=== PATIENT | male | born 1945 | race Caucasian/White ===

== ENCOUNTER → 2017-10-18 | Outpatient (CLI) | payer OTHER ==
[~2017-10-18] MED LIST: AMLO10 PO; ASPI325 PO; ASPI81CH PO; CHOL10002; CRANBERRY250 MG PO; INSULANPEN SC; LIRA0.6P; LISI20 PO; LISINOPRIL 40MG PO; LOVASTATIN 10 MG PO; OMEP40CA12 PO; Saw Palmetto C1 EACH PO
== END ==
LOC: LAB SHORT 10:06
DX: N39.0 Urinary tract infection, site not specified (principal)
CPT/HCPCS: 87077; 87086; 87186

== ENCOUNTER 2019-05-25 09:39 | Inpatient (IN) | payer OTHER ==
[~2019-05-25] VITALS: Ht 172.7 cm; Wt 113.4 kg
[~2019-05-25 09:39] MED LIST changes: -ASPI325 PO; +Aspirin EC81 MG PO; -CHOL10002; -INSULANPEN SC; -LISI20 PO; -OMEP40CA12 PO; +OMEPRAZOLE20 MG PO; -Saw Palmetto C1 EACH PO; +Saw Palmetto450 MG PO; +TOUJEO SOL300 UNIT/1 SC; +VITAMIN D31000 UNIT PO; +ZESTRIL40 MG PO
[2019-05-25] MEDS ORDERED: CLOP75 PO (09:51)
[2019-05-25 10:01] LABS: BASOPHILS ABSOLUTE AUTO 0.08 K/mm3 (0.00-0.23); BASOPHILS PERCENT AUTO 1 % (0-2); EOSINOPHILS ABSOLUTE AUTO 0.91 K/mm3 (0.00-0.68); EOSINOPHILS PERCENT AUTO 9 % (0-6); Hematocrit 42.9 % (37.0-53.0); Hemoglobin 14.1 g/dL (13.5-17.5); IMMATURE GRAN ABSOLUTE AUTO 0.03 K/mm3 (0.00-0.10); IMMATURE GRAN PERCENT AUTO 0 % (0-1); LYMPHOCYTES ABSOLUTE AUTO 2.06 K/mm3 (0.84-5.20); LYMPHOCYTES PERCENT AUTO 19 % (21-46); MONOCYTES PERCENT AUTO 10 % (4-13); Mean Corpuscular HGB 30.4 pg (26.0-34.0); Mean Corpuscular HGB Conc 32.9 g/dL (31.5-36.5); Mean Platelet Volume 10.3 fL (9.1-12.4); NEUTROPHILS ABSOLUTE AUTO 6.51 K/mm3 (1.96-9.15); NEUTROPHILS PERCENT AUTO 61 % (41-73); Platelet Count 330 K/mm3 (150-400); RDW Coefficient Variation 13.7 % (11.7-14.2); RDW Standard Deviation 46.7 fL (35.1-46.3); Red Blood Cell Count 4.64 M/mm3 (4.30-5.90); White Blood Cell Count 10.69 K/mm3 (4.00-11.30)
[2019-05-25 10:05] LABS: Mean Corpuscular Volume 93 fL (80-100)
[2019-05-25 10:18] LABS: Alanine Aminotransfer (ALT/SGP 21 U/L (12-78); Albumin, Blood 3.5 g/dL (3.4-5.0); Albumin/Globulin Ratio 0.9 (0.8-1.8); Alk Phos 110 U/L (50-136); Anion Gap 8 mmol/L (6-16); Aspartate Aminotrans (AST/SGOT 17 U/L (12-37); Bilirubin, Total 0.4 mg/dL (0.1-1.0); Blood Urea Nitrogen 10 mg/dL (8-24); Bun/Creatinine Ratio 16.5 (12.0-20.0); CO2, Blood 29 mmol/L (21-32); Calcium, Blood 8.5 mg/dL (8.5-10.1); Chloride, Blood 105 mmol/L (98-108); Creatinine, Blood 0.61 mg/dL (0.60-1.20); Globulin, Blood 3.8 g/dL (2.2-4.0); Glomerular Filtration Rate >60 (60-); Glucose, Blood 115 mg/dL (70-99); Potassium, Blood 4.2 mmol/L (3.5-5.5); Sodium, Blood 142 mmol/L (136-145); Total Protein, Blood 7.3 g/dL (6.4-8.2)
[2019-05-25 10:23] LABS: Troponin I 0.766 ng/mL (0.000-0.040)
[2019-05-25] MEDS ORDERED: Lipitor20 MG PO (12:32)
[2019-05-25] MEDS ORDERED: NOVOLOG FL100 UNIT/1 SC (12:33)
--- NOTE | 2019-05-25 18:19 | NUR ---
END OF SHIFT; PT ARRIVED TO U APPROX 1645 TODAY. HE DENIED ANY CP OR PRESSURE ON ARRIVAL. CARDIOLOGY CONSULT IS CALLED TO ON ARRIVAL TO U. CH TROP IS VERBALLY GIVEN TO WHO WAS AT U DESK. EXAMINED PT THIS QUE AND CONSENTED PT FOR ANGIO. HE IS HAVING ECHO FIRST THEN WILL BE TRANSFERRED TO [facility] FOR ANGIO. PT HAD 7 BEAT RUN OF VTACH DURING ECHO. WAS SYMPTOMATIC FEELING A FLUTTER IN HIS CHEST AND SOB. NOTIFIED OF EVENT. AT THIS TIME ECHO IS BEING PERFORMED. WILL CONTINUE TOMONITOR THIS PATIENT UNTIL REPORT AND HAND OFF TO NOC SHIFT RN.
--- NOTE | 2019-05-26 03:12 | NUR ---
SHIFT SUMMARY: PATIENT POST CATH VSS, RIGHT RADIAL SITE IS FREE OF ANY SIGN OF BLEEDING, HEMATOMA FORMATION, UNUSUAL BRUISING AND HAS ALL SENSATIONS AND MOVEMENT INTACT, O2 SATURATIONS REMAINE >90%. TR BAND FULLY RECOVERED AT APPROX 0300 AND HEPARIN RESTARTED AT THIS TIME PER MD INSTRUCTION. PATIENT APTT IS 26 AT THIS TIME. PATIENT EDUCATED AND FULLY AWARE OF PLAN TO [facility] TRANSFER TO [facility] 05/26/19 FOR FURTHER TREATMENT OF HEART ISSUES. ALL VS THIS SHIFT, PATIENT COMPLIANT WITH CARE, CALL LIGHT WITHIN REACH WITH BED LOW AND LOCKED.
[2019-05-26 07:27] LABS: BASOPHILS ABSOLUTE AUTO 0.09 K/mm3 (0.00-0.23); BASOPHILS PERCENT AUTO 1 % (0-2); EOSINOPHILS ABSOLUTE AUTO 0.93 K/mm3 (0.00-0.68); EOSINOPHILS PERCENT AUTO 10 % (0-6); Hematocrit 41.8 % (37.0-53.0); Hemoglobin 13.9 g/dL (13.5-17.5); IMMATURE GRAN ABSOLUTE AUTO 0.03 K/mm3 (0.00-0.10); IMMATURE GRAN PERCENT AUTO 0 % (0-1); LYMPHOCYTES ABSOLUTE AUTO 1.48 K/mm3 (0.84-5.20); LYMPHOCYTES PERCENT AUTO 16 % (21-46); MONOCYTES ABSOLUTE AUTO 0.87 K/mm3 (0.16-1.47); MONOCYTES PERCENT AUTO 9 % (4-13); Mean Corpuscular HGB 30.1 pg (26.0-34.0); Mean Corpuscular HGB Conc 33.3 g/dL (31.5-36.5); Mean Corpuscular Volume 91 fL (80-100); Mean Platelet Volume 10.2 fL (9.1-12.4); NEUTROPHILS ABSOLUTE AUTO 5.97 K/mm3 (1.96-9.15); NEUTROPHILS PERCENT AUTO 64 % (41-73); Platelet Count 284 K/mm3 (150-400); RDW Coefficient Variation 13.9 % (11.7-14.2); RDW Standard Deviation 46.4 fL (35.1-46.3); Red Blood Cell Count 4.62 M/mm3 (4.30-5.90); White Blood Cell Count 9.37 K/mm3 (4.00-11.30)
--- NOTE | 2019-05-26 07:30 | NUR ---
INITIAL ASSESSMENT: Patient is awake and sitting at the edge of the bed. Patient is alert and oriented. He denies pain at this time. He states the only time he has pain is when he is lying down at night, his lower back and shoulders "bother" him. Patients heart rate is in NSR with first degree heart block in the 70s per telemetry. LS dim with exp wheezes t/o. Biox WNL on RA. Patient states last week he was treated with ABX for cough and SOB. Patient states it got better for a while and then returned, thus he went back to urgent care and was sent to the ER. Patient has a dry NPC. Biox 92% on RA. BT+. PPP. VSS. Heaprin GTT infusing at 13u/kg. Right wrist TR site with opsite dressing CDI. Arm board in place. Call light in reach, pt denies other needs at this time.
[2019-05-26 07:44] LABS: Anion Gap 7 mmol/L (6-16); Blood Urea Nitrogen 11 mg/dL (8-24); Bun/Creatinine Ratio 19.9 (12.0-20.0); CO2, Blood 27 mmol/L (21-32); Calcium, Blood 8.8 mg/dL (8.5-10.1); Chloride, Blood 107 mmol/L (98-108); Creatinine, Blood 0.55 mg/dL (0.60-1.20); Glomerular Filtration Rate >60 (60-); Glucose, Blood 144 mg/dL (70-99); Potassium, Blood 4.2 mmol/L (3.5-5.5); Sodium, Blood 141 mmol/L (136-145)
--- NOTE | 2019-05-26 11:45 | NUR ---
ASSESSMENT: PATIENT IS RESTING IN BED WITH FAMILY AT BEDSIDE. VSS. ASSESSMENT UNCHANGED. PT DENIES OTHER NEEDS AT THIS TIME. CALL LIGHT IN REACH, WILL CONTINUE TO MONITOR.
--- NOTE | 2019-05-26 12:15 | NUR ---
FIELD OPERATIONS TECHNICIAN CALLED AND GAVE ROOM ASSIGNMENT. PT AND FAMILY NOTIFIED OF ROOM ASSIGNMENT. TRANSPORT SET UP FOR 1:30.
--- NOTE | 2019-05-26 13:30 | NUR ---
PT TO [facility]
== END 2019-05-26 13:34 | disposition short-term general hospital (02) | DRG 281 ==
LOC: ER 09:39 → PCU 15:13
PROVIDERS: Emergency Medicine; ADMIT Student in an Organized Health Care Education/Training Program
PROC: B2111ZZ Fluoroscopy of Multiple Coronary Arteries using Low Osmolar Contrast (ICD-10-PCS; principal; 2019-05-25)
DX: I21.4 Non-ST elevation (NSTEMI) myocardial infarction (principal); I48.92 Unspecified atrial flutter; Z79.82 Long term (current) use of aspirin; Z79.4 Long term (current) use of insulin; I10 Essential (primary) hypertension; J44.9 Chronic obstructive pulmonary disease, unspecified; E11.51 Type 2 diabetes mellitus with diabetic peripheral angiopathy without gangrene; Z87.891 Personal history of nicotine dependence; Z66 Do not resuscitate; F10.10 Alcohol abuse, uncomplicated; I25.10 Atherosclerotic heart disease of native coronary artery without angina pectoris
CPT/HCPCS: 36415; 71260; 80048; 80053; 82947; 83690; 83880; 84484; 85025; 85730; 93005; 93010; 93306; 93454; 94640; 94760; 96365-59; 96366; 99152; 99153; 99285-25; C1769; C1894; J1644; J2250; J2405; J3010; J7030; Q9967

== ENCOUNTER → 2020-02-08 | Outpatient (CLI) | payer OTHER ==
[~2020-02-08] MED LIST changes: +CLOP75 PO; +Lipitor20 MG PO; +NOVOLOG FL100 UNIT/1 SC
== END | disposition home or self-care (01) ==
LOC: LAB EV 10:02 → LAB SHORT 10:02
DX: N39.0 Urinary tract infection, site not specified (principal)
CPT/HCPCS: 87077; 87086; 87186

== ENCOUNTER → 2023-02-21 | Outpatient (CLI) | payer OTHER ==
[~2023-02-21] MED LIST changes: +ASPI325 PO; +ATORVASTATIN CA80 M1 PO; +CLOBETASOL EMOL15 G1; +ELIQUIS5 M2 PO; +FURO40 PO; +FUROSEMIDE40 MG PO; +Glucotrol5 MG PO; +ISOSORBIDE MONO30 MG PO; +LEVO750 PO; -LIRA0.6P; +LOSA25 PO; +Lasix20 MG PO; +Lopressor 25 mg25 MG PO; +METO25ER PO; +METO50ER PO; +NOVOLIN N100 UNIT/2 SC; -NOVOLOG FL100 UNIT/1 SC; +NOVOLOG FL100 UNIT/3 SC; +NOVOLOG SC; +OMEP20ER PO; +PANT20 PO; +SILD25T PO; +SYMBICORT 160-4.6 GM INH; +Saw Palmetto160 MG PO; -Saw Palmetto450 MG PO; +TIOT18 INH; -TOUJEO SOL300 UNIT/1 SC; +TOUJEO SOL300 UNIT/2 SC; +VICTOZA 3-0.6 MG/0.2 SC; +Ventolin/Prove6.7 GM INH; +[UNRECOGNIZED DRUG - OTHER] SC
== END | disposition home or self-care (01) ==
LOC: LAB 08:30 → LAB SHORT 08:30
DX: J84.9 Interstitial pulmonary disease, unspecified (principal); J40 Bronchitis, not specified as acute or chronic
CPT/HCPCS: 88108; 88312

== ENCOUNTER 2023-03-07 15:31 | Emergency (ER) | payer OTHER ==
[~2023-03-07] VITALS: Ht 170.2 cm; Wt 106.6 kg
[2023-03-07 16:03] VITALS: BP 117/62
[2023-03-07] MEDS ORDERED: Percocet 5-3251 EACH PO (16:58)
== END 2023-03-07 17:04 | disposition home or self-care (01) ==
LOC: ER 15:31
DX: M54.16 Radiculopathy, lumbar region (principal); M54.40 Lumbago with sciatica, unspecified side; I11.0 Hypertensive heart disease with heart failure; I50.9 Heart failure, unspecified; E11.9 Type 2 diabetes mellitus without complications; J44.9 Chronic obstructive pulmonary disease, unspecified; E78.5 Hyperlipidemia, unspecified; I25.2 Old myocardial infarction; Z79.02 Long term (current) use of antithrombotics/antiplatelets; Z79.01 Long term (current) use of anticoagulants; Z79.4 Long term (current) use of insulin; Z79.84 Long term (current) use of oral hypoglycemic drugs; Z79.899 Other long term (current) drug therapy; Z87.891 Personal history of nicotine dependence; X50.0XXA Overexertion from strenuous movement or load, initial encounter
CPT/HCPCS: A9270; J1885

== ENCOUNTER 2023-07-26 11:34 | Emergency (ER) | payer OTHER ==
[~2023-07-26] VITALS: Ht 172.7 cm; Wt 90.7 kg
[~2023-07-26 11:34] MED LIST changes: +AMOCLA875 PO; +CARV6.25 PO; +CELE100; +DOXY100 PO; +ELIQUIS5 M2; +MORP15ER PO; +ONDA4ODT MM; +Percocet 5-3251 EACH PO
[2023-07-26 12:37] LABS: BASOPHILS ABSOLUTE AUTO 0.06 K/mm3 (0.00-0.23); BASOPHILS PERCENT AUTO 1 % (0-2); EOSINOPHILS PERCENT AUTO 7 % (0-6); Hematocrit 54.8 % (37.0-53.0); Hemoglobin 18.3 g/dL (13.5-17.5); IMMATURE GRAN ABSOLUTE AUTO 0.01 K/mm3 (0.00-0.10); IMMATURE GRAN PERCENT AUTO 0 % (0-1); LYMPHOCYTES ABSOLUTE AUTO 1.61 K/mm3 (0.84-5.20); LYMPHOCYTES PERCENT AUTO 19 % (21-46); MONOCYTES ABSOLUTE AUTO 0.86 K/mm3 (0.16-1.47); MONOCYTES PERCENT AUTO 10 % (4-13); Mean Corpuscular HGB 30.7 pg (26.0-34.0); Mean Corpuscular HGB Conc 33.4 g/dL (31.5-36.5); Mean Corpuscular Volume 92 fL (80-100); Mean Platelet Volume 10.9 fL (9.1-12.4); NEUTROPHILS ABSOLUTE AUTO 5.31 K/mm3 (1.96-9.15); NEUTROPHILS PERCENT AUTO 63 % (41-73); Platelet Count 310 K/mm3 (150-400); RDW Coefficient Variation 13.5 % (11.7-14.2); RDW Standard Deviation 45.9 fL (35.1-46.3); Red Blood Cell Count 5.96 M/mm3 (4.30-5.90); White Blood Cell Count 8.45 K/mm3 (4.00-11.30)
[2023-07-26 12:49] LABS: Albumin, Blood 3.4 g/dL (3.4-5.0); Albumin/Globulin Ratio 0.7 (0.8-1.8); Bilirubin, Total 0.8 mg/dL (0.1-1.0); Bun/Creatinine Ratio 25.4 (12.0-20.0); Calcium, Blood 8.9 mg/dL (8.5-10.1); Creatinine, Blood 0.75 mg/dL (0.60-1.20); Globulin, Blood 4.6 g/dL (2.2-4.0); Potassium, Blood 4.4 mmol/L (3.5-5.5)
[2023-07-26] MEDS ORDERED: AZIT250 PO (13:38)
[2023-07-26] MEDS ORDERED: PRED20 PO (13:38)
[2023-07-26] MEDS ORDERED: LIDO700A20 TOP (13:56)
[2023-07-26 14:30] VITALS: BP 131/93
== END 2023-07-26 14:38 | disposition home or self-care (01) ==
LOC: ER 11:34
PROVIDERS: Emergency Medicine
DX: J44.1 Chronic obstructive pulmonary disease with (acute) exacerbation (principal); D72.829 Elevated white blood cell count, unspecified; I11.0 Hypertensive heart disease with heart failure; I50.9 Heart failure, unspecified; E11.51 Type 2 diabetes mellitus with diabetic peripheral angiopathy without gangrene; I25.10 Atherosclerotic heart disease of native coronary artery without angina pectoris; I25.2 Old myocardial infarction; E78.5 Hyperlipidemia, unspecified; Z79.01 Long term (current) use of anticoagulants; Z79.84 Long term (current) use of oral hypoglycemic drugs; Z79.899 Other long term (current) drug therapy; Z87.891 Personal history of nicotine dependence; Z99.81 Dependence on supplemental oxygen
CPT/HCPCS: 71046; 80053; 84484; 85025; 93005; 93010; 96374; 96375; 99285-25; J1885; J2930

== ENCOUNTER 2023-10-22 09:30 | Observation (INO) | payer OTHER ==
[~2023-10-22] VITALS: Ht 170.2 cm; Wt 84.0 kg
[~2023-10-22 09:30] MED LIST changes: +AZIT250 PO; +LIDO700A20 TOP; +PRED20 PO
[2023-10-22 11:28] LABS: Base Excess Venous 2.9 mmol/L; Bicarbonate Venous 26.3 mmol/L (24.0-30.0); PCO2 Venous 42.4 mmHg (38-42); pH Blood Venous 7.42 (7.34-7.37)
[2023-10-22 11:35] LABS: BASOPHILS ABSOLUTE AUTO 0.03 K/mm3 (0.00-0.23); BASOPHILS PERCENT AUTO 0 % (0-2); EOSINOPHILS ABSOLUTE AUTO 0.01 K/mm3 (0.00-0.68); EOSINOPHILS PERCENT AUTO 0 % (0-6); Hematocrit 50.2 % (37.0-53.0); Hemoglobin 16.8 g/dL (13.5-17.5); IMMATURE GRAN ABSOLUTE AUTO 0.07 K/mm3 (0.00-0.10); IMMATURE GRAN PERCENT AUTO 1 % (0-1); LYMPHOCYTES ABSOLUTE AUTO 0.92 K/mm3 (0.84-5.20); LYMPHOCYTES PERCENT AUTO 7 % (21-46); MONOCYTES ABSOLUTE AUTO 0.83 K/mm3 (0.16-1.47); MONOCYTES PERCENT AUTO 6 % (4-13); Mean Corpuscular HGB 30.5 pg (26.0-34.0); Mean Corpuscular HGB Conc 33.5 g/dL (31.5-36.5); Mean Corpuscular Volume 91 fL (80-100); Mean Platelet Volume 12.1 fL (9.1-12.4); NEUTROPHILS ABSOLUTE AUTO 11.78 K/mm3 (1.96-9.15); NEUTROPHILS PERCENT AUTO 86 % (41-73); Platelet Count 194 K/mm3 (150-400); RDW Coefficient Variation 13.5 % (11.7-14.2); RDW Standard Deviation 45.7 fL (35.1-46.3); Red Blood Cell Count 5.51 M/mm3 (4.30-5.90); White Blood Cell Count 13.64 K/mm3 (4.00-11.30)
[2023-10-22 12:03] LABS: Albumin, Blood 2.6 g/dL (3.4-5.0); Albumin/Globulin Ratio 0.6 (0.8-1.8); Bilirubin, Total 0.7 mg/dL (0.1-1.0); Bun/Creatinine Ratio 38.8 (12.0-20.0); Calcium, Blood 8.9 mg/dL (8.5-10.1); Creatinine, Blood 0.7 mg/dL (0.60-1.20); Globulin, Blood 4.7 g/dL (2.2-4.0); Potassium, Blood 4.8 mmol/L (3.5-5.5); Total Protein, Blood 7.3 g/dL (6.4-8.2)
[2023-10-22 12:20] LABS: Influenza A, PCR NEGATIVE (NEGATIVE); Influenza B, PCR NEGATIVE (NEGATIVE); Resp Syncytial Virus, PCR NEGATIVE (NEGATIVE)
[2023-10-22 12:27] LABS: SARS-Cov-2 (COVID-19) PCR, MMC POSITIVE (NEGATIVE)
[2023-10-22 16:15] VITALS: BP 132/73
--- NOTE | 2023-10-22 20:05 | NUR ---
TRANSFER-1700 PT ARRIVED ON MEDICAL FLOOR IN STABLE CONDITION AFTER RECEIVING REPORT FROM SUPERVISOR CARBON PAPER COATING-ON 10L OXYGEN BY OXYMIZER. PT AAOX4. DENIES THE NEED FOR PAIN MEDS. PT POLITEY REFUSED LASIX AND COREG TONIGHT. RN DISCUSSED EOL/HOSPICE/PALLIATIVE CARE.
--- NOTE | 2023-10-23 06:22 | NUR ---
REPORT RECEIVED VERIFIED, PT A/O AIR VO AT 10L O2 SAT 95% PT WORKING HARD TO BREATH BUT STATES HE IS DOING JUST FINE. I HAD DISCUSSION WITH PT ABOUT REFUSED MEDS AND CONVINCED HIM THAT LASIX MAY HELP HIM BREATH A LITTLE BETTER, AND HE AGREED. I ALSO OFFERED A CONDOM CATH WHICH HE HAPPILY ACCEPTED. PT VERY DEPRESSED AND EXPRESSED HIS HOPLESSNESS. PT STATED HE WAS READY TO GO AT ANYTIME NOW. I OFFERED PT SCHEDULED PAIN MED BUT HE REFUSED SAYING HE DIDNT WAS TO BECOME CONSTIPATED. I LET HIM KNOW THERE WAS MEDICATION AVAILABLE THAT MY HELP HIM RELAX AND BREATH BETTER. PT STILL REFUSED BUT AGREED TO TAKE IT IF HE WAS HAVING A HARD TIME. CURRENTLY PT SLEEPING COMFORTABLY
--- NOTE | 2023-10-23 18:36 | NUR ---
SUMMARY- PT REFUSED MS CONTIN THIS MORNING. PT EDUCATED REGARDING APPROPRIATE PAIN CONTROL. PT AGREED TO TAKE MS CONTIN TONIGHT. PT IS HAVING INTERMITTENT NAUSEA. EMAR MEDS HELPED. PT COMPLAINED OF A PERALTA THIS SHIFT. TYLENOL HELPED. PT STAYED IN BED ALL SHIFT. AAOX4. BEDREST. FAMILY AT BEDSIDE MOST OF THE DAY.
--- NOTE | 2023-10-23 18:40 | NUR ---
pt resting with face covered. Starting to have more symptoms. He is anxious about narcotics because of past history of constipation. He is photosensitive. some ringing in his ears. Increasing abdominal pain and nausea. Grandson at bedside very attentive. They are working on new advance directive and power of flare maker. Will get them notary tomorrow. Adeola has moven in with him and has been providing care. Will continue to follow.kps is 30% pt starting to transition.
--- NOTE | 2023-10-24 18:00 | NUR ---
SUMMARY- PT IS INTERMITTENTLY NONRESPONSIVE. PT UNSAFE TO TAKE ORAL MEDS NOW. ONLY ATROPINE AND ROXANOL BEING GIVEN NOW. IV ZOFRAN IS BEING ADMINISTERED FOR NAUSEA WELL. PT IS NOW INCONTINENT. EOL EDUCATION GIVEN EXTENSIVELY TO FAMILY ALL SHIFT.
--- NOTE | 2023-10-24 22:36 | NUR ---
1899: ASSUMED CARE OF PT. REPORT RECEIVED FROM DAY SHIFT RN MARTINEZ. PT IS LAYING IN BED WITH HOB ELEVATED, NON RESPONSIVE AT THIS TIME. HEAD TILTED BACK WITH INCREASED WOB. OXYGEN VIA OXIMIZER AT 11LPM. FAMILY AT THE BEDSIDE. PT WITH COARSE WET BREATHING, ATROPINE IN USE. PT MEDICATED PER EMR. BRIEF IS SOILDED, PEGGY CARE AND NEW BRIEF PROVIDED AT THIS TIME. REPOSITIONED FOR SKIN INTEGRITY. SUCTION IS SET UP AND PT ASSISTED FOR SECRETIONS PRIOR TO MEDICATING. TOLERATED WELL. FAMILY EDUCATED ON SUCTION. 2152: PT FOUND TO BE WITHOUT A HEARTBEAT OR RESPIRATIONS. SECOND RN CHECK. FAMILY IS AT THE BEDSIDE AND WILL NOTIFY THE REST OF THE FAMILY. AKRI NOTIFIED AND CAME TO BE WITH THE FAMILY AND PT. HOSPITALIST NOTIFIED BY PHONE.
--- NOTE | 2023-10-24 23:22 | NUR ---
"Spiritual Care | EOL Callback Pt. had passed. Met some family members in the hallway and began to facilitate a life review. Joined other family members at bedside. Prayed for the family and gave a blessing for the Pt. Family had chosen a home in [place]. Confirmed home choice with charge nurse. Family verbalized gratitude for the spiritual care visit."
--- NOTE | 2023-10-25 10:52 | NUR ---
follow up call to family . Spoke with grandson expressed relif and grateful for the care.
== END 2023-10-24 21:53 ==
LOC: ER 09:30 → MEDS 16:07
PROVIDERS: Student in an Organized Health Care Education/Training Program; ADMIT Family Medicine
DX: U07.1 COVID-19 (principal); J96.21 Acute and chronic respiratory failure with hypoxia; Z51.5 Encounter for palliative care; Z66 Do not resuscitate; I11.0 Hypertensive heart disease with heart failure; I50.20 Unspecified systolic (congestive) heart failure; I25.10 Atherosclerotic heart disease of native coronary artery without angina pectoris; I25.2 Old myocardial infarction; E78.5 Hyperlipidemia, unspecified; G47.33 Obstructive sleep apnea (adult) (pediatric); I48.91 Unspecified atrial fibrillation; E11.319 Type 2 diabetes mellitus with unspecified diabetic retinopathy without macular edema; Z79.01 Long term (current) use of anticoagulants; Z79.4 Long term (current) use of insulin; Z79.899 Other long term (current) drug therapy
CPT/HCPCS: 0241U; 36415; 71046; 80053; 82803; 83605; 83880; 84145; 84484; 85025; 87040; 87077; 87186; 93005; 93010; 94760; 96361; 96365; 96367; 96375; 96376; 99285-25; A9270; G0378; J0248; J0696; J1100; J2405; J2930; J7030; J7050